=== PATIENT | female | born 1940 | race African-American/Black ===

== ENCOUNTER 2024-01-18 06:24 | Emergency (ER) | payer MEDICARE, OTHER ==
[~2024-01-18] VITALS: Ht 167.6 cm; Wt 75.0 kg
[2024-01-18 06:27] VITALS: TEMP 97.9
[2024-01-18] MEDS ORDERED: DONE-51 PO (06:53)
[2024-01-18] MEDS ORDERED: CALC0.5C11 PO (06:53)
[2024-01-18] MEDS ORDERED: ATOR10TA PO (06:53)
[2024-01-18] MEDS ORDERED: PREG50 PO (06:53)
[2024-01-18] MEDS ORDERED: SPIR-37 PO (06:53)
[2024-01-18] MEDS ORDERED: METO-327 PO (06:53)
[2024-01-18] MEDS ORDERED: CLON-441 PO (06:53)
[2024-01-18] MEDS ORDERED: GALA12TA PO (06:53)
[2024-01-18] MEDS ORDERED: GABA-1181 PO (06:53)
[2024-01-18] MEDS ORDERED: NIFE-40 PO (06:54)
[2024-01-18 07:51] LABS: GLUCOMETER DEV NAME(LOC) ER.7; GLUCOSE,POINT OF CARE 92 MG/DL (70-110)
[2024-01-18] MEDS ORDERED: PREG100C PO ×2 (07:55→07:57)
[2024-01-18 08:00] VITALS: BP 115/86; PULSE 60; RESP 16; O2SAT 100
== END 2024-01-18 08:36 | disposition home or self-care (01) ==
LOC: EDBD 06:24 → EMS 06:24
DX: E11.42 Type 2 diabetes mellitus with diabetic polyneuropathy (principal); E11.65 Type 2 diabetes mellitus with hyperglycemia; I10 Essential (primary) hypertension; E78.00 Pure hypercholesterolemia, unspecified; Z79.899 Other long term (current) drug therapy
CPT/HCPCS: 82962; 99283